=== PATIENT | male | born 1955 | race Caucasian/White ===

== ENCOUNTER 2018-11-03 20:17 | Emergency (ER) | payer OTHER | END 2018-11-03 23:34 | disposition home or self-care (01) | LOC: FTE 20:17 | DX: B02.9 Zoster without complications (principal); Z79.82 Long term (current) use of aspirin | CPT/HCPCS: 99283; Z7502 ==

== ENCOUNTER 2018-12-01 18:33 | Emergency (ER) | payer OTHER | END 2018-12-01 23:19 | disposition home or self-care (01) | LOC: FTE 18:33 | DX: L73.9 Follicular disorder, unspecified (principal); L29.9 Pruritus, unspecified; Z79.82 Long term (current) use of aspirin | CPT/HCPCS: 99283; Z7502 ==